=== PATIENT | male | born 1970 | race Caucasian/White ===

== ENCOUNTER → 2021-10-12 10:31 | Outpatient (CLI) | payer OTHER, SELFPAY ==
--- NOTE | ~2021-10-12 | MR_ITS ---
EXAMINATION: MR lumbar spine wo/w con EXAM DATE: 10/12/2021 11:44 INDICATION: Low Back Pain. TECHNIQUE: Multi-sequential, multiplanar MR images of the lumbar spine were obtained without contrast . Sagittal T1, T2, T2 fat saturation images. Axial T2 weighted images. Axial T1 weighted sequence. Patient was then injected with 18 mL Multihance intravenous contrast and reimaged. Postcontrast axi al and sagittal T1-weighted fat saturation sequences were obtained. There are no prior studies for co mparison. FINDINGS: The conus medullaris terminates at the T12-L1 level and has normal signal intensity and mor phology. Minimal lumbar levoscoliosis. Mild diffuse lumbar disc disease. The vertebral bodies are al igned in the AP dimension. There are no suspicious marrow signal abnormalities. Paraspinal soft tis rené is unremarkable. There are no areas of abnormal enhancement on the post contrast images. Level by level evaluation: T12-L1: Disc does not extend beyond the endplate margin. Facet arthropathy: None. Neural foraminal stenosis: No stenosis. Central canal stenosis: No stenosis. L1-L2: Disc does not extend beyond the endplate margin. Facet arthropathy: None. Neural foraminal stenosis: No stenosis. Central canal stenosis: No stenosis. L2-L3: There is a mild diffuse disc bulge, with superimposed small left central protrusion. Facet arthropathy: Mild. Neural foraminal stenosis: Mild left. Central canal stenosis: Mild. L3-L4: There is a mild diffuse disc bulge. Facet arthropathy: Mild. Neural foraminal stenosis: Mild to moderate left, mild right. Central canal stenosis: No stenosis. L4-L5: There is a mild diffuse disc bulge with superimposed small to moderate central protrusion Facet arthropathy: Mild bilateral. Neural foraminal stenosis: Mild bilateral. Central canal stenosis: Mild. L5-S1: There is a mild diffuse disc bulge. Facet arthropathy: Mild. Neural foraminal stenosis: Mild right. Central canal stenosis: No stenosis. IMPRESSION: 1. Overall mild lumbar spondylosis. 2. No acute findings. Reviewed, dictated and finalized at location A. [facility]
[2021-10-12 10:56] LABS: Estimated Glomerular Filt Rate > 60
== END ==
PROVIDERS: PCP Internal Medicine; Visit Provider Internal Medicine
DX: M47.817 Spondylosis without myelopathy or radiculopathy, lumbosacral region (principal); M48.07 Spinal stenosis, lumbosacral region
CPT/HCPCS: 72158; A9577

== ENCOUNTER 2022-02-20 01:14 | Day surgery (SDC) | payer OTHER, SELFPAY ==
[2022-02-06 10:52] VITALS: BMI 27.1
[2022-02-20 06:27] VITALS: BMI 26.6
[2022-02-20] MEDS: LACTATED RINGERS 1,000 ML 150 ML IV CONT (06:36)
[2022-02-20 06:40] VITALS: BP 125/88; PULSE 80; RESP 18; TEMP 36.6; O2SAT 99
--- NOTE | 2022-02-20 06:54 | P.PNAN_ITS ---
Anes - Initial Pre Proc Eval Procedure: Operation Date: 02/20/22 07:30 Proposed Procedures p Screening Colonoscopy - Cristiano Kenny MD Date/Time: 02/20/22 06:54 Surgeon: Cristiano Kenny MD Pre Op Diagnosis: neoplasm screening, family hx of colon ca Patient Data Age: 51 Gender: M Height: 1.83 m Weight: 89.1 kg Last Vital Signs Temp 36.6 C 02/20/22 06:40 Pulse 80 02/20/22 06:40 Resp 18 02/20/22 06:40 BP 125/88 02/20/22 06:40 Pulse Ox 99 02/20/22 06:40 O2 Del Method Room Air 02/20/22 06:40 Allergies Allergy/AdvReac Type Severity Reaction Status Date / Time CEPHALEXIN MONOHYDRATE Allergy Unknown Uncoded 02/20/16 10:46 POISON TRUDY Allergy Unknown HIVES/ITCHY Uncoded 02/20/16 10:46 Home Medications Medication Instructions Recorded Confirmed Type aspirin 81 mg capsule 81 mg PO DAILY 02/06/22 02/06/22 History atorvastatin 20 mg tablet 20 mg PO DAILY 02/06/22 02/06/22 History doxycycline monohydrate 40 mg 40 mg PO DAILY 02/06/22 02/06/22 History capsule,immediate - delay release (Oracea) ibuprofen 100 mg tablet 100 mg PO PRN PRN Pain 02/06/22 02/06/22 History omega-3 fatty acids 1 cap PO DAILY 02/06/22 02/06/22 History valacyclovir 1 gram tablet 1 mg PO DAILY PRN Cold Sores 02/06/22 02/06/22 History Patient hx anesthesia problems: none Family hx anesthesia problems: none Results Review: All pre-operative results and documents have been reviewed as part of the pre- operative evaluation. [facility] Past Medical History Medical History (Updated 02/20/22 @ 06:55 by Wilver Perez MD) Hyperlipidemia Family History Family History (Updated 05/14/14 @ 07:13 by DOCTOR UNKNOWN) Other Family history of malignant neoplasm Social History Social History Smoking status: Never smoker Alcohol intake: current Alcohol use details: occasional social Substance use: never Substance use type: does not use Living arrangements: with family Spiritual care concerns: No Anes - Eval Final PreProcedure Day of Procedure 02/20/22 06:54 Patient weight: overweight Heart: regular rate and rhythm Lungs: clear to auscultation and normal air movement Airway: Mallampati scale class II Neurological: alert and oriented Last oral intake: >/= 8 hours ASA classification: II Emergent: no Anesthetic plan: proceed Anesthesia type and monitoring: general GIVS Results Review: All pre-operative results and documents have been reviewed as part of the pre- operative evaluation. Informed Consent: The patient's anesthetic plan and its attendant risks and benefits were discussed with the patient/family/POA. Questions were solicited and answers provided to the satisfaction of the patient/family/POA.
--- NOTE | 2022-02-20 07:20 | PM.IMHP ---
H&P: HPI History of Present Illness Date/Time: 02/20/22 07:20 Chief Complaint: Family history of colon cancer in father. Narrative: This is a 51-year-old white male patient who presents for colonoscopy. Patient has a family history of his father had colon cancer at age 47. Patient states his own weight appetite bowel movements are normal. He denies abdominal pain. He has had no bleeding. Patient's last colonoscopy was 5 years ago. He presents today for neoplasia screening exam. Review of Systems Review of Systems: Review of systems noncontributory. [facility] Past Medical History Medical History (Updated 02/20/22 @ 07:21 by Cristiano Kenny MD) Hyperlipidemia Family History Family History (Updated 05/14/14 @ 07:13 by DOCTOR UNKNOWN) Other Family history of malignant neoplasm Social History Social History Smoking status: Never smoker Alcohol intake: current Alcohol use details: occasional social Substance use: never Substance use type: does not use Living arrangements: with family Spiritual care concerns: No Meds Home Medications and Allergies Home Medications Medication Instructions Recorded Confirmed Type aspirin 81 mg capsule 81 mg PO DAILY 02/06/22 02/06/22 History atorvastatin 20 mg tablet 20 mg PO DAILY 02/06/22 02/06/22 History doxycycline monohydrate 40 mg 40 mg PO DAILY 02/06/22 02/06/22 History capsule,immediate - delay release (Oracea) ibuprofen 100 mg tablet 100 mg PO PRN PRN Pain 02/06/22 02/06/22 History omega-3 fatty acids 1 cap PO DAILY 02/06/22 02/06/22 History valacyclovir 1 gram tablet 1 mg PO DAILY PRN Cold Sores 02/06/22 02/06/22 History Allergies Allergy/AdvReac Type Severity Reaction Status Date / Time CEPHALEXIN MONOHYDRATE Allergy Unknown Uncoded 02/20/16 10:46 POISON TRUDY Allergy Unknown HIVES/ITCHY Uncoded 02/20/16 10:46 Vital Signs Vital Signs - 24 hr 02/20/22 06:40 Temperature 97.8 F Pulse Rate 80 Respiratory Rate 18 Blood Pressure 125/88 Pulse Oximetry 99 Oxygen Delivery Room Air Exam Narrative: Physical exam reveals patient to be alert. Vital signs stable. HEENT exam is unremarkable. Patient is anicteric. Lungs are clear to auscultation and percussion. Heart is without murmur or extra sounds. Abdominal exam bowel sounds are present soft nontender with no organomegaly. Digital external rectal exam is normal. Assessment and Plan Assessment and plan (1) Family history of colon cancer in father: Code(s): Z80.0 - Family history of malignant neoplasm of digestive organs Status: Acute Assessment and Plan: Patient's father had colon cancer at a young age. Plan is for surveillance colonoscopy now and consider this at 5 year intervals in the future.
[2022-02-20 07:46] VITALS: BP 118/65; PULSE 72; RESP 18; O2SAT 99
[2022-02-20 07:56] VITALS: BP 128/56; PULSE 72; RESP 18; O2SAT 100
[2022-02-20 08:06] VITALS: BP 133/78; PULSE 60; RESP 18; O2SAT 100
== END 2022-02-20 08:14 | disposition home or self-care (01) ==
PROVIDERS: PCP Internal Medicine; Visit Provider Internal Medicine Gastroenterology
PROC: 0DJD8ZZ Inspection of Lower Intestinal Tract, Via Natural or Artificial Opening Endoscopic (ICD-10-PCS; CPT 45378; principal; 2022-02-20 07:30)
DX: Z12.11 Encounter for screening for malignant neoplasm of colon (principal); D12.0 Benign neoplasm of cecum; D12.2 Benign neoplasm of ascending colon; D12.5 Benign neoplasm of sigmoid colon; E78.5 Hyperlipidemia, unspecified; Z80.0 Family history of malignant neoplasm of digestive organs
CPT/HCPCS: 45385; 88305; J2704; J7120

== ENCOUNTER 2023-10-21 15:59 | Emergency (ER) | payer OTHER, SELFPAY ==
--- NOTE | 2023-10-21 16:08 | ED.GENADULT ---
HPI - General Adult General Chief complaint: Upper Respiratory Infection Stated complaint: rt ear pain,throat discomfort Time Seen by Provider: 10/21/23 16:09 Source: patient Mode of arrival: ambulatory Limitations: no limitations History of Present Illness HPI narrative: 52-year-old male patient presents to the [facility] with complaints of sore throat that started today. Patient states he has taken some Tylenol for the pain earlier today. Patient states he has tried some warm salt water gargles. Denies any fevers, body aches or chills. Related Data Home Medications Medication Instructions Recorded Confirmed aspirin 81 mg capsule 81 mg PO DAILY 02/06/22 10/21/23 ibuprofen 100 mg tablet 100 mg PO Pain 02/06/22 01/04/23 valacyclovir 1 gram tablet 1 mg PO DAILY Cold Sores 02/06/22 10/21/23 cholecalciferol (vitamin D3) 25 25 mcg PO DAILY 01/04/23 10/21/23 mcg (1,000 unit) capsule Allergies Allergy/AdvReac Type Severity Reaction Status Date / Time CEPHALEXIN MONOHYDRATE Allergy Unknown Rash Uncoded 10/21/23 16:11 POISON TRUDY Allergy Unknown HIVES/ITCHY Uncoded 10/21/23 16:11 Review of Systems Review of Systems: CONSTITUTIONAL: Denies fever, chills, or sweats. EYES: Denies visual changes, redness, or discharge. ENT: Denies rhinorrhea, congestion, Positive sore throat, denies otalgia. CARDIOVASCULAR: Denies chest pain, palpitations, or edema. RESPIRATORY: Denies cough or dyspnea. GASTROINTESTINAL: Denies abdominal pain, nausea, vomiting, or diarrhea. GENITOURINARY: Denies dysuria or hematuria. SKIN: Denies rash or itching. MUSCULOSKELETAL: Denies back pain, joint pain, or myalgia. NEUROLOGIC: Denies headache, numbness, or weakness. PSYCHIATRIC: Denies anxiety or depression. [facility] Past Medical History Medical History Hyperlipidemia Seborrheic dermatitis of scalp Surgical History Surgical History History of colonoscopy 04/24/2017, 02/2022 Hx of tonsillectomy Family History Family History Father Carcinoma of colon Mother Ovarian cancer Other Family history of malignant neoplasm Social History Social History Smoking status: Never smoker Alcohol intake: current Alcohol use details: occasional social Substance use: never Substance use type: does not use Living arrangements: with family Occupation/Education: occupation Additional occupation/education comments: [employer] Spiritual care concerns: No Agree to blood products: Yes Comments At the time of my signature I agree with nursing past medical history, surgical, social, and family history. There is no relevant family history pertinent to the presenting complaint. Exam Narrative: GENERAL: Well-appearing, well-nourished, and in no acute distress. HEAD: Normocephalic, atraumatic. EYES: PERRLA and EOMI. ENT: Nares clear, no rhinorrhea or epistaxis. Mucous membranes moist. posterior pharynx with slight erythema no obvious tonsillar enlargement, exudates or lesions present. Bilateral TMs are clear no erythema foreign bodies canal. NECK: Supple. No lymphadenopathy CHEST: Clear to auscultation. No respiratory distress. HEART: Regular rate and rhythm. No murmur heard. Normal peripheral pulses. ABDOMEN: Soft, nontender, nondistended, normal active bowel sounds. EXTREMITIES: Normal range of motion. No edema. SKIN: Warm, dry, no rash. NEURO: No focal deficits. Alert and oriented x3. Course Course Level of Care: Express Care Visit Vital Signs Vital signs: Vital Signs Temperature 36.8 C 10/21/23 16:12 Pulse Rate 84 10/21/23 16:12 Respiratory Rate 16 10/21/23 16:12 Blood Pressure 145/92 H 10/21/23 16:12 Pulse Oximetry 99 10/21/23 16:12 Oxygen Delivery Room Air
[2023-10-21 16:12] VITALS: BP 145/92; PULSE 84; RESP 16; TEMP 36.8; O2SAT 99
== END 2023-10-21 17:00 | disposition home or self-care (01) ==
PROVIDERS: Emergency Provider Nurse Practitioner Family; PCP Internal Medicine
DX: J02.0 Streptococcal pharyngitis (principal); E78.5 Hyperlipidemia, unspecified; Z79.82 Long term (current) use of aspirin
CPT/HCPCS: 87880; 99213; G0463

== ENCOUNTER 2025-07-11 10:34 | Emergency (ER) | payer OTHER, SELFPAY ==
--- OUTSIDE RECORDS SUMMARY | 2025-07-11 10:39 | XMS_ITS | Data Portability ---
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 Additional PRP/fat booster discussed at 3-6 months post-initial treatment. Recommend functional movement screening at R3 as well as continued moderate exercise. Would like to obtain laboratory studies for optimization of treatment. Patient given information regarding same. May follow up if wishes to pursue. Return for worsening symptoms. Greater than 45 minutes was spent with the patient in direct evaluation and subsequent care planning. [email or web address] Not available 03/02/2020 17:34:18 Plan of Treatment Reminders Order Date Submit Date Provider Last Modified By Organization Details Last Modified Time Details Appointments None recorded. Lab PSA, serum or plasma 2019 020 TAYLOR Not available 0 12:30:28 CBC w/ auto diff 2019 020 TAYLOR Not available 0 13:23:19 vitamin D, 25-hydroxy, total, serum 2019 020 TAYLOR Not available 0 12:43:52 testosteron e, free, serum 2019 020 TAYLOR Not available 0 18:17:17 testosteron e, total, serum 2019 020 [email or web address] Not available 0 12:36:45 Referral None recorded. Procedures None recorded. Surgeries None recorded. Imaging XR, lumbar spine 2019 020 [email or web address] Not available 0 17:38:07 US, upper extremity, nonvascular 2017 018 [email or web address] Not available 8 16:17:27 XR, shoulder - rm 15 2016 017 [email or web address] Not available 7 17:47:23 Medication Orders hydrocodone 5 mg-acetamin ophen 325 mg tablet 2016 017 [email or web address] [id number], [address] [place] [address], [address], 7 14:18:03 Patient TargetsNo targets recorded. Patient Instructions Encounter Date Encounter Id Patient Instructions Last Modified By Organization Details Last Modified Time 05/29/2017 [id number] shoulder pain: care instructions [email or web address] Not available 06/06/2017 09:07:40 Reason for Referral None Reported. Results Created Date Observation Date Name Description Value Unit Range Abnormal Flag Note LastModifiedBy Organization Detail LastModifiedTime Result Notes None recorded. Problems No Known Problems Procedures Surgical History Date Name Laterality Status Provider Name and Address Organization Details Recorded Time 03/02/20 20 Generic Procedure completed Sue Armijo [employer] 03/02/2020 17:33:45 05/29/20 17 [place] [address] [place] [address], [phone], [employer], [facility] 05/30/2017 14:07:46 05/02/20 16 [place] [address], [place], [address], [employer], [facility] 05/02/2016 22:07:38 09/17/18 82 Tonsillectomy completed Sujatha Santos [employer], [facility] 04/03/2016 14:46:57 Imaging Results None recorded. Procedure Notes None recorded. Medical Equipment None Reported. Allergies Allergen ID Allergen Name Allergen Category Reaction Reaction Severity Criticality Documentation Date Start Date Code Code System Note Provider Name and Address Organization Details Recorded Time 71887 Keflex medicatio n rash Not available Not available 05/15/201744419 7 RxNorm Esteban Allison ADRIANA perez [facility], [facility] 7 16:03:57 Medications Name Sig Start Date Stop Date Status Note LastModified by Organization Details LastModified Time prednisone 10 mg tablet active Not Available Not Available Not Available doxycycline hyclate 100 mg capsule active Not Available Not Available N ot Available atorvastati n 20 mg tablet active Not Available Not Available Not Available clindamycin HCl 300 mg capsule Take 3 capsules (total of 900mg) po one hour prior to procedure . One time dose. active Not Available Not Available No t Available atorvastati n 10 mg tablet TAKE 1 TABLET BY MOUTH EVERY DAY. NEEDS APPT active Not Available Not Available No t Available valacyclovi r 1 gram tablet active Not Available Not Available Not Available hydrocodone 5 mg-acetamin ophen 325 mg tablet Take 1 tablet every 6 hours by oral route as needed for 7 days. active Not Available Not Available No t Available acyclovir 400 mg tablet active Not Available Not Available Not Available clindamycin 1 %-benzoyl peroxide 5 % topical gel active Not Available Not Available Not Available triamcinolo ne acetonide 0.1 % topical cream APPLY A THIN FILM TWICE DAILY TO ARMS FOR 14 DAYS. active Not Available Not Available No t Available pramipexole 0.5 mg tablet active Not Available Not Available Not Available clindamycin 1 % topical gel active Not Available Not Available Not Available benzonatate 100 mg capsule active Not Available Not Available Not Available doxycycline monohydrate 100 mg capsule TAKE 1 CAPSULE BY MOUTH DAILY WITH FOOD FOR 30 DAYS active Not Available Not Available No t Available cephalexin 500 mg capsule 05/15 completed Not Available Not Available Not Available pantoprazol e 40 mg tablet,naomy yed release active Not Available Not Available Not Available simvastatin 20 mg tablet active Not Available Not Available Not Available erythromyci n 5 mg/gram (0.5 %) eye ointment 05/15 completed Not Available Not Available Not Available hydroxyzine HCl 25 mg tablet 05/15 completed Not Available Not Available Not Available clobetasol 0.05 % scalp solution APPLY DAILY TO AFFECTED AREA ON SCALP NEEDED. active Not Available Not Available No t Available doxycycline hyclate 100 mg tablet active Not Available Not Available No t Available naproxen 500 mg tablet 05/15 completed Not Available Not Available Not Available neomycin 3.5 mg/g-polymy keyonna B 10,000 unit/g-dexa meth 0.1 % eye oint active Not Available Not Available Not Available Oracea 40 mg capsule,imm ediate - delay release active Not Available Not Available Not Available cholecalcif elizabeth (vitamin D3) 1,250 mcg (50,000 unit) capsule TAKE 1 CAPSULE BY MOUTH ONE TIME PER WEEK active Not Available Not Available No t Available Suprep Bowel Prep Kit 17.5 gram-3.13 gram-1.6 gram oral solution active Not Available Not Available Not Available Soolantra 1 % topical cream active Not Available Not Available Not Available clindamycin 1 %-benzoyl peroxide 5 % topical gel with pump active Not Available Not Available Not Available Vitals Date Recorded Body height Body mass index (BMI) Body weight Heart rate Systolic And Diastolic Provider Name and Address Organization Details Last Updated DateTime 01/01/2018 182.88 cm 26.4 kg/m2 40005.51 g 58 /min 119/74 mm[Hg] Elvis Red [facility] [employer], [facility] 01/01/2018 14:10:37 Date Recorded Body height Body mass index (BMI) Body weight Provider Name and Address Organization Details Last Updated DateTime 03/02/2020 182.88 cm 26.4 kg/m2 10158.51 g Lizabeth Welsh [address], [place], [address], [place] [employer], [facility] 03/02/2020 16:32:22 Date Recorded Body height Body mass index (BMI) Body weight Heart rate Systolic And Diastolic Provider Name and Address Organization Details Last Updated DateTime 03/26/2018 182.88 cm 26.4 kg/m2 66990.51 g 67 /min 121/87 mm[Hg] Elvis Red [facility] [employer], [facility] 03/26/2018 16:33:39 Date Recorded Body height Body mass index (BMI) Body weight Heart rate Systolic And Diastolic Provider Name and Address Organization Details Last Updated DateTime 05/15/2017 182.88 cm 27.1 kg/m2 98515.47 g 83 /min 126/81 mm[Hg] Esteban Allison [facility] [employer] [facility] 05/15/2017 16:03:27 Date Recorded Body height Body mass index (BMI) Body weight Heart rate Systolic And Diastolic Provider Name and Address Organization Details Last Updated DateTime 05/29/2017 182.88 cm 27.1 kg/m2 31642.47 g 86 /min 139/85 mm[Hg] Pallavi Montemayor [facility] [facility] 05/29/2017 14:17:23 Social History Question Answer Notes LastModified by [employer] Details LastModified Time Tobacco Smoking Status Never Smoker Sujatha Santos ana [facility] [employer] [facility] 04/03/2016 14:46:19 Marital Status Informatio n not available 04/03/2016 What Was The Date Of Your Most Recent Tobacco Screening? 03/26/2018 Information n ot available 04/10/2019 Sex: Unknown Functional Status Question Answer Note LastModified by [employer] Details LastModified Time What is your level of alcohol consumption? Occasional Information not available 04/03/2016 Mental Status None recorded. Family History Nothing Reported. Medical History Condition Response HIV or AIDS N Coronary Artery Disease N Gout N Kidney Stones N Hyperthyroidism N Head Trauma/Injury N Hernia N Hypothyroidism N Depression N COPD N Blood Clots N Lung Disease N Pacemaker N Anxiety Disorder N Arthritis Y Cancer N Stroke N Neck Injury N Leg or Foot Ulcers N High Cholesterol Y Liver Disease N Rheumatoid Arthritis N Headaches N Fibromyalgia N Kidney Disease N Heart Problems N Migraines N Thyroid Problems N Anemia N Multiple Sclerosis N Ulcers N Heart Attack (NM) N Diabetes N Bleeding Disorder N Seizures/Epilepsy N Tuberculosis N Urinary Tract Infection N Back Problems N Diverticulitis N Asthma N Lupus N Peripheral Vascular Disease N Sleep Disorder N GERD/Reflux N Hepatitis N Aneurysm N Heart Disease N Pulmonary Embolism N Hypertension N Osteoporosis N Past Encounters Encounter ID Performer Location Encounter Start Date Encounter Closed Date Diagnosis/Indication Diagnosis SNOMED-CT Code Diagnosis ICD10 Code Diagnosis IMO Codes Diagnosis Note [id number] John Wolff MD [facility] [address] [facility] [place] HUGHES [address] 04/03/2016 14:26:08 04/04/2016 11:46:30 Pain of shoulder region 63072529 M25.511 Pain of elbow region 743 97271 M25.521 [id number] John Wolff MD [facility] [address] [place] [address] 05/02/2016 14:03:05 05/03/2016 13:19:23 [id number] John Wolff MD [facility] [address] [place] [address] 06/13/2016 16:14:26 06/14/2016 12:09:54 [id number] John Wolff MD [facility] [address] [place] [address] 05/15/2017 15:53:14 05/16/2017 12:57:32 Pain of shoulder region 66409164 M25.512 right elbow pain [id number] John Wolff MD [facility] [address] [address] [place] [address] 05/29/2017 13:51:49 05/29/2017 15:23:39 Pain of shoulder region 18899090 M25.512 [id number] John Wolff MD [facility] [address] [place] [address] 01/01/2018 13:58:23 01/01/2018 16:17:27 Pain of shoulder region 89016566 M25.512 [id number] John Wolff MD [facility] [address] [address] [place] [address] 03/26/2018 16:08:38 03/27/2018 10:32:18 [id number] UMA PAN [facility] [address] [place] [address] 03/02/2020 16:23:11 03/11/2020 12:28:51 Low back pain 719717949 M54.5 Screening procedure 2012 5006 Z13.9 R53.83 M89.9 M94.9 Z12.5 Z01.812 E55.9 Arthropath y of lumbar facet joint 284371909 M46.96 Degenerati on of lumbar intervertebral disc 23326100 M51.36 Health Concerns Section Related Observation LastModified by Organization Detai ls LastModified Time None Recorded Concern Status LastModified by Organization Details LastModified Time None Recorded Advance Directives Directive None Recorded Payers Insurance Date Sequence Insurance Name Policy Number Policy Phan Covered Member ID Phan Member ID Guarantor Name 08/28/2021 1 [facility] (O) [id number] Min Black [facility] [id number] Min Novembertx 01/01/2018 1 [facility] (O) [id number] Min [facility] [id number] Min Novembertx 05/15/2017 1 [facility] (O) [id number] Akil Wayne G[place]ay[place] [id number] Min Bose 07/08/2016 1 [facility] [id number] Akil [employer] [id number] Imn Novembertx 01/01/2018 1 [facility] [id number] Min Gallowaytx [id number] Min Novembertx Notes Date Note Type Note Provider Name and Address Organization Details Recorded Time 03/02/2020 text/html Pt presents c/o centralized low back pain onset 5 years ago. Pain is mildly worse on the LT. Significant pain with flexion that is rated 6/10. Denies numbness, tingling, and weakness. No bladder or bowel changes. He reports steroid injection to the lumbar spine 2 years [employer] with 1 year of relief. No radiation until 3 months [employer]. Pain now radiates to the lateral thigh and hamstring region bilaterally, only radiating [address] the thigh. Relief with Tylenol & Ibuprofen at bedtime. Pt has had prior BMAC/fat and PRP/fat treatments in the past to the RT shoulder and RT elbow with significant relief. ADRIANA Jessica - [employer], [facility] 03/02/2020 17:49:39
--- OUTSIDE RECORDS SUMMARY | 2025-07-11 10:39 | XMS_ITS | Clinical Summary ---
Author Organization [facility] Address [address] [place] [address] Care Team Providers Care Cloth Baler Name Role Phone Nuha Amezquita Primary Care Provider [phone] Allergies Active Allergy Reactions Criticality Noted Date Comments Cephalexin Rash Low 05/26/2021 Medications atorvastatin 20 MG tablet Active triamcinolone 0.1 % cream Apply topically 2 (two) times daily. Do not apply to face 45 g 1 Active Social History Tobacco Use Types Packs/Day Years Used Date Smoking Tobacco: Never Smokeless Tobacco: Never Alcohol Use Standard Drinks/Week Comments Yes 0 (1 standard drink = 0.6 oz pur e alcohol) socially Sex and Gender Information Value Date Recorded Sex Assigned at Not on file Legal Sex Male 7:17 PM CDT Gender Identity Not on file Sexual Orientation Not on file Last Filed Vital Signs Vital Sign Reading Time Taken Comments Blood Pressure 133/79 06/08/2022 7:49 PM CDT Pulse 86 06/08/2022 7:49 PM CDT Temperature 36.3 C (97.4 F) 06/08/2022 7:49 PM CDT Respiratory Rate 16 06/08/2022 7:49 PM CDT Oxygen Saturation 98% 06/08/2022 7:49 PM CDT Inhaled Oxygen Concentration - - Weight 88.5 kg (195 lb) 06/08/2022 7:49 PM CDT Height 182.9 cm (6') 06/08/2022 7:49 PM CDT Body Mass Index 26.45 06/08/2022 7:49 PM CDT Plan of Treatment Health Maintenance Due Date Last Done Comments Colorectal Cancer Screening Colonoscopy (10 Years) 1971 Annual Physical 11/27/1974 Hepatitis C 11/27/1989 DTaP, Tdap and Td Vaccines ( 1 - Tdap) 11/27/1990 Hepatitis B Vaccines (1 of 3 - 19+ 3-dose series) 11/27/1990 Pneumococcal Vaccine: 50+ Years (1 of 1 - PCV) 11/27/2021 Zoster Vaccines (1 of 2) 11/27/2021 COVID-19 Vaccine (3 - 2024-2 6 season) 2025 01/03/2021, 12/13/2020 Influenza Adult (#1) 2025 Hepatitis A Vaccines Aged Out No long er eligible based on patient's age to complete this topic Meningococcal B Vaccine Aged Out No l onger eligible based on patient's age to complete this topic Meningococcal Vaccine Aged Out No [place] eligible based on patient's age to complete this topic RSV Immunizations Under 20 Months Aged Out No longer eligible b ased on patient's age to complete this topic Insurance Care Teams Cloth Baler Relationship Specialty Start Date End Date Nuha Amezquita PA [address] [place] [id number] PCP - General PHYSICIAN MECHANIC SENIOR 06/08/22
[2025-07-11 10:44] VITALS: BP 119/84; PULSE 77; RESP 18; TEMP 36.6; O2SAT 98
--- NOTE | 2025-07-11 10:55 | ED.URI ---
HPI - URI/Sore Throat General Chief Complaint: Upper Respiratory Infection Stated Complaint: URI Patient presents to the [facility] with complaints of 2-3 weeks of nasal congestion, sinus pain, sore throat, nasal drainage, fatigue, productive cough, and headaches. patient reports using Advil cold and sinus with temporary relief of symptoms. Patient noted spouse ill with similar symptoms this started after his. Denies fever, chills, body aches, dizziness, shortness of breath, wheezing, nausea, vomiting, diarrhea, or ear pain. Related Data Home Medications ?Medication ?Instructions ?Recorded ?Confirmed ?Last Taken ?Type ibuprofen 100 mg tablet 100 mg PO Pain 02/06/22 01/04/23 Unknown History valacyclovir 1 gram tablet 1 mg PO DAILY Cold Sores 02/06/22 10/21/23 Unknown History cholecalciferol (vitamin D3) 25 25 mcg PO DAILY 01/04/23 10/21/23 Unknown History mcg (1,000 unit) capsule cyanocobalamin (vitamin B-12) 1,000 mcg PO DAILY 07/11/25 07/11/25 Unknown History 1,000 mcg capsule Allergies Allergy/AdvReac Type Severity Reaction Status Date / Time CEPHALEXIN MONOHYDRATE Allergy Unknown Rash Uncoded 10/21/23 16:11 POISON TRUDY Allergy Unknown HIVES/ITCHY Uncoded 10/21/23 16:11 Review of Systems Constitutional: Constitutional: Reports as per HPI, Denies chills, Reports fatigue, Denies fever(s) and Denies weakness Eyes: Eyes: Reports no additional eye complaints ENT: Reports as per HPI, Denies vertigo, Denies dizziness, Reports nasal congestion and Reports sore throat Comments: Sinus pain Cardiovascular: Cardiovascular: Reports no additional cardiovascular complaints Respiratory: Respiratory: Reports as per HPI, Reports chest congestion, Reports cough, Denies dyspnea and Denies wheezing Gastrointestinal: Gastrointestinal: Reports no additional gastrointestinal complaints Genitourinary: Genitourinary: Reports no additional male genitourinary complaints Musculoskeletal: Musculoskeletal: Reports as per HPI, Denies back pain and Denies myalgias Integumentary/Breasts: Skin/Breast: Reports as per HPI and Denies rash Neurologic: Reports as per HPI, Denies vertigo, Denies dizziness, Denies syncope, Reports headache(s) and Denies weakness Psychiatric: Psychiatric: Reports no additional psychiatric complaints Endocrine: Endocrine: Reports no additional endocrine complaints Hematologic/Lymphatic: Hematologic/Lymphatic: Reports no additional hematologic/lymphatic complaints Allergic/Immunologic: Allergic/Immunologic: Reports no additional allergic/immunologic complaints [facility] Past Medical History Medical History Hyperlipidemia Seborrheic dermatitis of scalp Surgical History Surgical History History of colonoscopy 04/24/2017, 02/2022 Hx of tonsillectomy Family History Family History Father Carcinoma of colon Mother Ovarian cancer Other Family history of malignant neoplasm Social History Social History Smoking status: Never smoker Alcohol intake: current Alcohol use details: occasional social Substance use: never Substance use type: does not use Living arrangements: with family Occupation/Education: occupation Additional occupation/education comments: [employer] Spiritual care concerns: No Agree to blood products: Yes Exam Const: General: healthy appearing and no acute distress Nutritional Appearance: well nourished Orientation/consciousness: patient oriented x3 Limitations: no limitations HENMT: Head: normal to inspection Ears: external ears normal and TM's normal bilaterally Face/Nose/Sinus: Normal external nose present and Normal nares present Face and sinus: normal facial exam and sinus tenderness maxillary Mouth: Yes Normal oral and palatal mucosa present, Yes lip normal and Yes moist mucous membranes Throat: posterior oropharynx abnormal ( moderate erythema with no edema or exudate) Neck: Neck: normal visual inspection and no lymphadenopathy Resp: Effort & Inspection: normal respiratory effort Auscultation: clear to auscultation bilaterally Cardio: Rate: regular rate Rhythm: regular rhythm Skin: General skin exam: normal color Rashes: no rashes Wounds: no wounds Neuro: General: patient oriented x3 Speech: normal speech Gait exam (Neuro): Normal gait present Psych: Mental Status: mental status grossly normal Affect: normal affect Attitude: cooperative Course Course Level of Care: Express Care Visit Vital Signs Vital signs: Vital Signs Temperature 98 F 07/11/25 10:44 Pulse Rate 77 07/11/25 10:44 Respiratory Rate 18 07/11/25 10:44 Blood Pressure 119/84 07/11/25 10:44 Pulse Oximetry 98 07/11/25 10:44 Oxygen Delivery Room Air 07/11/25 10:44 Temperature 98 F 07/11/25 10:44 Pulse Rate 77 07/11/25 10:44 Respiratory Rate 18 07/11/25 10:44 Blood Pressure 119/84 07/11/25 10:44 Pulse Oximetry 98 07/11/25 10:44 Oxygen Delivery Room Air 07/11/25 10:44 MDM - URI/Sore Throat MDM Narrative Medical decision making narrative: given timeline will treat patient for sinusitis. The patient was evaluated by myself in the [facility]. History is obtained from patient who is an independent historian and physical exam was performed. Available medical records were reviewed at this time. Exam findings show no acute concerns or changes; patient is non-toxic appearing and is in no distress. Patient is appropriate for outpatient treatment and follow-up. I have evaluated and discussed social determinants of health with the patient that could potentially impact subsequent diagnosis and treatment plans. Differential diagnosis and treatment plan were discussed with the patient. Patient agrees with discussion and after shared medical decision making agrees with plan of care. All questions were answered to the patient's satisfaction. Differential Diagnosis Differential diagnosis: Likely upper respiratory infection, croup, otitis media, sinusitis, viral infection, influenza and pharyngitis Medical Records Attestation: I reviewed the patient's medical records. Discharge Plan Discharge Clinical Impression: Sinusitis Patient Disposition: Home Condition: Stable Instructions: Antibiotic Form, Sinusitis (ED) Additional Instructions: Take the antibiotics as directed for the entire course. Do not miss any doses. What you are taking antibiotics and is recommended to take a probiotic or have yogurt daily to return the good gut bacteria to your system. This can also help with acute diarrhea while taking antibiotics. A can take 24-48 hours for the antibiotics the cake in to relieve your symptoms continue to take these medications to help with various symptoms: Tylenol or Motrin for pain, headache, or fever Flonase/fluticasone or Nasacort/triamcinolone nasal spray- helps with congestion and nasal drainage. Sudafed/pseudoephedrine helps with sinus pain and congestion. Caution with high blood pressure. Use a humidifier or vaporizer at night. Drink plenty of water. 8-10 glasses per day. Mucinex/guaifenesinas directed and be sure to take with 8oz of water. Warm compresses over the forehead and cheeks to promote sinus drainage. Return to urgent care or go to the ER for new or worsening symptoms. Follow up with Primary provider if not improved after 1 week. Patient Language: Chinese Prescriptions: New amoxicillin 875 mg tablet 875 mg PO Q12H Qty: 20 0RF No Action cyanocobalamin (vitamin B-12) 1,000 mcg capsule 1,000 mcg PO DAILY cholecalciferol (vitamin D3) 25 mcg (1,000 unit) capsule 25 mcg PO DAILY valacyclovir 1 gram tablet 1 mg PO DAILY Advil 100 mg Tablet 100 mg PO atorvastatin 20 mg tablet See Rx Instructions .ROUTE .COMPLEX Qty: 30 0RF Dose Instruction: TAKE 1 TABLET BY MOUTH EVERY DAY Rx Instructions: TAKE 1 TABLET BY MOUTH EVERY DAY, pt needs an appt Follow-up/Referrals: Zaria,Kermit Durbin MD [Primary Care Provider] Time of Disposition: 10:59
== END 2025-07-11 11:16 | disposition home or self-care (01) ==
PROVIDERS: Emergency Provider Nurse Practitioner Family; PCP Internal Medicine
DX: J32.9 Chronic sinusitis, unspecified (principal); E78.5 Hyperlipidemia, unspecified
CPT/HCPCS: 99213; G0463